=== PATIENT | female | born 1950 | race Caucasian/White ===

== ENCOUNTER → 2022-05-12 | Outpatient (CLI) | payer MEDICARE, BC | LOC: WCC 12:00 | DX: L89.892 Pressure ulcer of other site, stage 2 (principal); G82.20 Paraplegia, unspecified; E66.01 Morbid (severe) obesity due to excess calories; Z96.0 Presence of urogenital implants | CPT/HCPCS: G0463 ==

== ENCOUNTER → 2022-05-21 | Outpatient (CLI) | payer MEDICARE, BC ==
[~2022-05-21] MED LIST: CEFUROXIME500 MG PO
== END ==
LOC: WCC 08:00
DX: L89.892 Pressure ulcer of other site, stage 2 (principal); E66.01 Morbid (severe) obesity due to excess calories; G82.20 Paraplegia, unspecified; I10 Essential (primary) hypertension; Z96.0 Presence of urogenital implants
CPT/HCPCS: G0463

== ENCOUNTER 2022-05-24 13:11 | Emergency (ER) | payer MEDICARE, BC ==
[2022-05-24 14:44] LABS: HEMOGLOBIN 11.8 gm/dl (12.3-15.3); RED BLOOD COUNT 4.45 M/UL (4.00-5.10)
[2022-05-24] MEDS ORDERED: CEFUROXIME500 MG PO ×2 (15:45→15:52)
== END 2022-05-24 15:52 | disposition home or self-care (01) ==
LOC: ER1 13:11
PROVIDERS: Physician Assistant
DX: Z43.5 Encounter for attention to cystostomy (principal); N39.0 Urinary tract infection, site not specified; R60.0 Localized edema; R29.898 Other symptoms and signs involving the musculoskeletal system; E03.9 Hypothyroidism, unspecified; Z88.5 Allergy status to narcotic agent; Z88.8 Allergy status to other drugs, medicaments and biological substances
CPT/HCPCS: 51701; 80053; 81001; 85025; 87077; 87086; 87186; 99283

== ENCOUNTER → 2022-05-29 | Outpatient (CLI) | payer MEDICARE, BC | LOC: WCC 07:25 | DX: L89.892 Pressure ulcer of other site, stage 2 (principal); G82.20 Paraplegia, unspecified; E66.01 Morbid (severe) obesity due to excess calories; Z96.0 Presence of urogenital implants; Z68.36 Body mass index [BMI] 36.0-36.9, adult | CPT/HCPCS: G0463 ==